=== PATIENT | female | born 1955 ===

== ENCOUNTER → 2023-03-19 | Outpatient (CLI) | payer OTHER | END | disposition home or self-care (01) | LOC: MRI 09:50 | PROVIDERS: ATTEND Physical Medicine & Rehabilitation | DX: M54.59 Other low back pain (principal); M41.86 Other forms of scoliosis, lumbar region | CPT/HCPCS: 72148 ==

== ENCOUNTER 2023-09-07 14:25 | Outpatient (CLI) | payer OTHER | END 2023-09-07 14:30 | disposition home or self-care (01) | LOC: RAD 14:25 | PROVIDERS: ATTEND Internal Medicine Cardiovascular Disease | DX: M12.9 Arthropathy, unspecified (principal) ==

== ENCOUNTER 2023-09-30 10:15 | Outpatient (CLI) | payer OTHER | END 2023-09-30 10:27 | disposition home or self-care (01) | LOC: MRI 10:15 | PROVIDERS: ATTEND Physical Medicine & Rehabilitation | DX: M17.12 Unilateral primary osteoarthritis, left knee (principal); M25.562 Pain in left knee | CPT/HCPCS: 73721 ==